=== PATIENT | male | born 1955 | race Caucasian/White ===

== ENCOUNTER 2018-07-14 16:47 | Emergency (ER) | payer BC ==
--- NOTE | 2018-07-14 17:30 | EDM.PDOC ---
ED HPI GENERAL MEDICAL PROBLEM - General Chief Complaint: Eye Problems Stated Complaint: PINK EYE IN BOTH/SWOLLEN GLANDS Time Seen by Provider: 07/14/18 17:04 Source of Information: Reports: Patient History Limitations: Reports: No Limitations - History of Present Illness INITIAL COMMENTS - FREE TEXT/NARRATIVE: 63 year old male presents for evaluation and treatment of bilateral eye irritation and discharge. Patient reports that the eye drainage started today with the right being first. States he has been constantly wiping discharge from the eyes for about the last 12 hours. He is also reporting swelling to the bilateral lymph nodes in his neck. Patient reports a history of cataracts. Patient reports he has had a cough and congestion for several weeks. Reports congestion, chills, sore throat and a minor cough. He denies any ear pain, nausea, vomiting or fevers. Patient did receive an influenza vaccine this season. Treatments DICTAPHONE OPERATOR: Reports: Other (see below) Other Treatments DICTAPHONE OPERATOR: none Right Eye Pain Score (Numeric/FACES): 2 Throat Pain Score (Numeric/FACES): 2 - Related Data Allergies Allergy/AdvReac Type Severity Reaction Status Date / Time No Known Allergies Allergy Verified 07/14/18 16:59 Home Meds: Home Meds Allopurinol [Zyloprim] 300 mg PO DAILY 07/14/18 [History] Amoxicillin/Clavulanate K [Augmentin 875-125 MG] 1 tab PO BID #20 tablet [Rx] Aspirin [Halfprin] 81 mg PO DAILY 07/14/18 [History] Carvedilol [Coreg] 50 mg PO DAILY 07/14/18 [History] Ciprofloxacin [Ciprofloxacin 0.3% Oph Soln] 0 ml OP Q2H #1 bottle 07/14/18 [Rx ] Grape Seed Extract [Grape Seed] 400 mg PO DAILY 07/14/18 [History] Lisinopril 40 mg PO DAILY 07/14/18 [History] Multivitamin [Multivitamins] 1 cap PO DAILY 07/14/18 [History] Pioglitazone [Actos] 45 mg PO DAILY 07/14/18 [History] amLODIPine [Norvasc] 10 mg PO DAILY 07/14/18 [History] atorvaSTATin Calcium [Lipitor] 40 mg PO DAILY 07/14/18 [History] metFORMIN [Glucophage XR] 1,500 mg PO DAILY 07/14/18 [History] metFORMIN [Glucophage XR] 750 mg PO 199907/14/18 [History] Past Medical History Cardiovascular History: Reports: High Cholesterol, Hypertension Musculoskeletal History: Reports: Gout Endocrine/Metabolic History: Reports: Diabetes, Type II Social & Family History - Tobacco Use Smoking Status *Q: Never Smoker - Caffeine Use Caffeine Use: Reports: Coffee, Soda - Recreational Drug Use Recreational Drug Use: No ED ROS GENERAL - Review of Systems Review Of Systems: See Below Constitutional: Reports: Chills. Denies: Fever HEENT: Reports: Eye Discharge, Throat Pain. Denies: Ear Pain Respiratory: Reports: Cough GI/Abdominal: Denies: Abdominal Pain, Nausea, Vomiting Neurological: Denies: Headache ED EXAM GENERAL W FULL EYE - Physical Exam Exam: See Below Exam Limited By: No Limitations General Appearance: Alert, WD/WN, No Apparent Distress Eye Exam: Bilateral Eye: Conjunctival Injection Conjunctiva & Sclera: Bilateral: Discharge, Injected Extraocular Movements: Bilateral: Intact Pupils: Normal Accommodation Pupillary Reaction: Bilateral: Brisk Anterior Chamber: Bilateral: Normal Appearance Ears: Normal External Exam, Normal Canal, Hearing Grossly Normal, Normal TMs Nose: Normal Inspection Throat/Mouth: Normal Inspection, Normal Lips, Normal Oropharynx, Normal Voice, No Airway Compromise Respiratory/Chest: No Respiratory Distress, Lungs Clear, Normal Breath Sounds Cardiovascular: Normal Peripheral Pulses, Regular Rate, Rhythm, No Murmur Neurological: Alert, Oriented, Normal Cognition Psychiatric: Normal Affect, Normal Mood Skin Exam: Warm, Dry, Normal Color Course - Vital Signs Last Recorded V/S: Last Vital Signs Temp 97.9 F 07/14/18 17:05 Pulse 80 07/14/18 17:05 Resp 20 07/14/18 17:05 BP 172/95 H 07/14/18 17:05 Pulse Ox 98 07/14/18 17:05 Departure - Departure Time of Disposition: 17:25 Disposition: Home, Self-Care 01 Condition: Good Clinical Impression: Conjunctivitis, Sinusitis - Discharge Information *PRESCRIPTION DRUG MONITORING PROGRAM REVIEWED*: No *COPY OF PRESCRIPTION DRUG MONITORING REPORT IN PATIENT MIGUEL ÁNGEL: No Prescriptions: Amoxicillin/Clavulanate K [Augmentin 875-125 MG] 1 tab PO BID #20 tablet Ciprofloxacin [Ciprofloxacin 0.3% Ophth Soln] 0 ml OP Q2H #1 bottle Instructions: Sinusitis, Adult, [id number], Bacterial Conjunctivitis Referrals: Eric Shaffer MD [Primary Care Provider] - Forms: ED Department Discharge Additional Instructions: Take the Augmentin as prescribed. 1 tab twice a day for 10 days. Take this with food. This medication can cause side effects of upset stomach, nausea and diarrhea. Injury take this with food. Take with yogurt or probiotic to help reduce the side effects. Take ciprofloxacin ophthalmic drops as prescribed. 2 drops every 2 hours while awake for 2 days then every 4 hours for 5 days. There is a refill on this medication if needed. Follow-up with your primary care provider if not much be in 2 weeks. Rest. Drink plenty of fluids. Please return to the ER for symptoms change or worsen.
== END 2018-07-14 17:43 | disposition home or self-care (01) ==
LOC: JD.ED 16:47
DX: H10.9 Unspecified conjunctivitis (principal); J32.9 Chronic sinusitis, unspecified; I10 Essential (primary) hypertension; M10.9 Gout, unspecified; E11.9 Type 2 diabetes mellitus without complications; Z79.82 Long term (current) use of aspirin; Z79.84 Long term (current) use of oral hypoglycemic drugs
CPT/HCPCS: 99282; 99283